=== PATIENT | female | born 1985 | race Caucasian/White ===

== ENCOUNTER 2019-02-23 06:21 | Emergency (ER) | payer SELFPAY ==
[~2019-02-23] VITALS: Ht 165 cm; Wt 82.0 kg
[~2019-02-23 06:21] MED LIST: AMOX500C2 PO; HYDR-3583 PO; HYDR118S10 PO; PENI500T PO; SERT25TA; [UNRECOGNIZED DRUG - CODE] PR; [UNRECOGNIZED DRUG - OTHER] PO
[2019-02-23] MEDS ORDERED: CYCL10TA9 PO (06:43)
[2019-02-23] MEDS ORDERED: IBUP-1780 PO (06:43)
--- NOTE | 2019-02-23 06:44 | ED Back Pain ---
General Chief Complaint: Back Problems Stated Complaint: LWR BACK PAIN Nursing Triage Note: PT AMBULATE TO ROOM FS06 WITH C/O LOWER BACK PAIN STARTING LAST NIGHT. PT STATES SHE WAS JUST LAYING IN BED AND IT STARTED AND SHE MAY HAVE PULLED A MUSCLE. PT REPORTS NO HX OF BACK PAIN. PT STATES SHE TOOK TYLENOL LAST NIGHT AND THIS MORNING WITH NO RELIEF. Nursing Sepsis Screen: No Definite Risk Source of Information: Patient Exam Limitations: No Limitations History of Present Illness Date Seen by Provider: Feb 23, 2019 Time Seen by Provider: 06:40 Initial Comments Injury to low back last night while "fooling around" with her significant other. Pain is described as a spasm and sharp. Denies any radiation of pain to lower extremities, weakness or loss of bowel or bladder control. Pain worse with movement. Denies history of recurrent or chronic back problems. Allergies and Home Medications Allergies Coded Allergies: CHRISANo Known Allergies (Unverified Allergy, Unknown, 10/09/05) Home Medications Amoxicillin 500 Mg Capsule, 1,000 MG PO BID Prescribed by: ARMAND FELIPE on 05/05/15 0953 Cyclobenzaprine HCl 10 Mg Tablet, 10 MG PO HS Prescribed by: LORE PERKINS on 02/23/19 0643 Ibuprofen 800 Mg Tablet, 800 MG PO Q8H PRN for PAIN-MILD Prescribed by: LORE PERKINS on 02/23/19 0643 Patient Home Medication List Home Medication List Reviewed: Yes Review of Systems Constitutional: no symptoms reported, see HPI Respiratory: no symptoms reported Cardiovascular: no symptoms reported Gastrointestinal: No abdominal pain, No constipation, No diarrhea, No heartburn, No nausea, No vomiting Genitourinary: no symptoms reported; No dysuria, No frequency Musculoskeletal: see HPI, back pain; No joint pain, No joint swelling; muscle pain; No muscle stiffness; muscle cramps; No muscle twitching, No muscle weakness, No neck pain Psychiatric/Neurological: Denies Numbness, Denies Paresthesia, Denies Pre- Existing Deficit, Denies Tremors, Denies Weakness Past Ginylhy-Sesvms-Qttgya Hx Past Med/Social Hx: Reviewed Nursing Past Med/Soc Hx Patient Social History Alcohol Use: Denies Use Recreational Drug Use: Yes (SMOKES 1/2 PPD) Smoking Status: Current Everyday Smoker Type Used: Cigars Recent Foreign Travel: No Contact w/Someone Who Travel: No Recent Infectious Disease Expo: No Recent Hopitalizations: Yes Physical Abuse: No Sexual Abuse: No Mistreated: No Fear: No Past Medical History Surgeries: Yes ( x2, 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 oz. 81.990644rv; 30.00 BMI Method:Stated General Appearance: No Apparent Distress, WD/WN Gastrointestinal: Non Tender, Soft; No Distended, No Guarding Back: Normal Inspection, No CVA Tenderness, No Vertebral Tenderness, Decreased Range of Motion, Muscle Spasm (lower lumbar paraspinal- b/l and upper left gluteus ms.); No Vertebral Tenderness Extremity: Normal Range of Motion, Non Tender Neurologic/Psychiatric: Alert, Oriented x3, No Motor/Sensory Deficits Progress/Results/Core Measures Results/Orders Vital Signs/I&O 02/23/19 06:30 Temp 36.5 Pulse 93 Resp 16 B/P (MAP) 129/84 (99) Pulse Ox 98 O2 Delivery Room Air Blood Pressure Mean: 99 Departure Impression Primary Impression: Back strain Qualified Codes: S39.012A - Strain of muscle, fascia and tendon of lower back, initial encounter Disposition: HOME, SELF-CARE Condition: Stable Departure-Patient Inst. Decision time for Depature: 06:43 Referrals: NO,LOCAL PHYSICIAN (PCP/Family) Primary Care Physician Patient Instructions: Lumbar Muscle Strain (DC) Scripts Ibuprofen (Ibuprofen) 800 Mg Tablet 800 MG PO Q8H PRN for PAIN-MILD, #30 TAB Prov: LORE PERKINS DO 02/23/19 Cyclobenzaprine HCl (Cyclobenzaprine HCl) 10 Mg Tablet 10 MG PO HS for Spasms, #14 TAB Prov: LORE PERKINS DO 02/23/19 LORE PERKINS DO Feb 23, 2019 06:44
[2019-02-23 06:55] VITALS: BP 129/78
== END 2019-02-23 06:53 | disposition home or self-care (01) ==
LOC: EDUNIT# 06:21 → ER FS 06:23
DX: S39.012A Strain of muscle, fascia and tendon of lower back, initial encounter (principal); F17.290 Nicotine dependence, other tobacco product, uncomplicated; X58.XXXA Exposure to other specified factors, initial encounter
CPT/HCPCS: 99281

== ENCOUNTER 2019-02-23 11:21 | Emergency (ER) | payer SELFPAY ==
[~2019-02-23] VITALS: Ht 165.1 cm; Wt 81.8 kg
[~2019-02-23 11:21] MED LIST changes: +CYCL10TA9 PO; +IBUP-1780 PO
--- NOTE | 2019-02-23 12:27 | ED Back Pain ---
General Chief Complaint: Back Problems Stated Complaint: BACK PAIN Source of Information: Patient Exam Limitations: No Limitations History of Present Illness Date Seen by Provider: Feb 23, 2019 Time Seen by Provider: 12:24 Initial Comments to ER with midline low back pain that began this morning while "fooling around" with her , she twisted wrong and now has pain in the midline low back that does not radiate. No loss of bowel or bladder control. She was seen at [place] emergency room this morning given a prescription for ibuprofen and cyclobenzaprine but couldn't afford [facility] didn't fill them, she comes here with persistent pain. Location: Lumbar Spine, Paraspinous Muscles Timing/Duration: 4-6 Hours Severity: Moderate Pain/Injury Location: Back Associated Symptoms: denies symptoms Allergies and Home Medications Allergies Coded Allergies: CHRISANo Known Allergies (Unverified Allergy, Unknown, 10/09/05) Home Medications Amoxicillin 500 Mg Capsule, 1,000 MG PO BID Prescribed by: ARMAND FELIPE on 05/05/15 0953 Cyclobenzaprine HCl 10 Mg Tablet, 10 MG PO HS Prescribed by: LORE PERKINS on 02/23/19 0643 Ibuprofen 800 Mg Tablet, 800 MG PO Q8H PRN for PAIN-MILD Prescribed by: LORE PERKINS on 02/23/19 0643 Patient Home Medication List Home Medication List Reviewed: Yes Review of Systems Constitutional: see HPI EENTM: see HPI Respiratory: no symptoms reported Cardiovascular: no symptoms reported Genitourinary: no symptoms reported Musculoskeletal: see HPI, back pain Skin: no symptoms reported Past Xjzcmdz-Jxgfaf-Tdxjmr Hx Patient Social History Type Used: Cigars Recent Foreign Travel: No Contact w/Someone Who Travel: No Recent Hopitalizations: Yes Past Medical History Surgeries: Yes ( x2, 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 oz. 81.337579hh; 30.00 BMI Method:Stated General Appearance: No Apparent Distress, WD/WN Cardiovascular: Regular Rate, Rhythm, Normal Peripheral Pulses Respiratory: No Accessory Muscle Use, No Respiratory Distress Gastrointestinal: Normal Bowel Sounds, Non Tender, Soft Back: Normal Inspection Extremity: Normal Capillary Refill, Normal Inspection Neurologic/Psychiatric: Alert, Oriented x3 Skin: Normal Color, Warm/Dry Progress/Results/Core Measures Results/Orders My Orders Orders - SANGEETA KENT APRN Ketorolac Injection (Toradol Injection) (02/23/19 12:30) Orphenadrine Injection (Norflex Injectio (02/23/19 12:30) Departure Impression Primary Impression: Lumbar sprain Disposition: 01 HOME, SELF-CARE Condition: Stable Departure-Patient Inst. Decision time for Depature: 12:26 Referrals: NO,LOCAL PHYSICIAN (PCP/Family) Primary Care Physician Patient Instructions: Low Back Pain (DC) SANGEETA KENT APRN Feb 23, 2019 12:26
[2019-02-23] MEDS ORDERED: ORPHENADRINE 60 MG/2 ML (NORFLEX) AMP IM ONE (12:30)
[2019-02-23] MEDS ORDERED: KETOROLAC 30 MG/ML VIAL IM ONE (12:30)
[2019-02-23] MEDS ORDERED: ONDANSETRON 4 MG (ZOFRAN) ORAL DISSOLVE TAB PO ONE (12:45)
[2019-02-23 12:52] VITALS: BP 110/73
== END 2019-02-23 12:52 | disposition home or self-care (01) ==
LOC: ER 11:21
DX: S33.5XXA Sprain of ligaments of lumbar spine, initial encounter (principal); X50.1XXA Overexertion from prolonged static or awkward postures, initial encounter
CPT/HCPCS: 99284

== ENCOUNTER 2019-07-26 15:48 | Emergency (ER) | payer SELFPAY ==
[~2019-07-26] VITALS: Ht 167 cm; Wt 96.5 kg
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
[2019-07-26 15:55] VITALS: BP 128/76
[2019-07-26] MEDS ORDERED: CEPH-507 PO (16:41)
--- NOTE | 2019-07-26 16:50 | Diagnostic Imaging Report ---
HISTORY: Right arm pain. COMPARISON: None. TECHNIQUE: Grayscale, color Doppler and spectral Doppler ultrasound was performed of the venous structures in the right upper extremity. FINDINGS: The right jugular, subclavian, axillary, and brachial veins appear patent without thrombus seen. The superficial basilic vein appears patent. The radial and ulnar veins are patent. The proximal superficial cephalic vein is patent. There is occlusive thrombus in the mid and distal superficial cephalic vein. IMPRESSION: 1. Occlusive thrombus in the mid to distal superficial right cephalic vein, consistent with thrombophlebitis. No deep venous thrombosis is seen. Findings reported to ELAINE JOHNSON APRN by the java programming professor, following the examination. Dictated by: Dictated on workstation # [id number]
== END 2019-07-26 16:40 | disposition home or self-care (01) ==
LOC: EDUNIT# 15:48 → ER 15:50
DX: S40.021A Contusion of right upper arm, initial encounter (principal); I80.8 Phlebitis and thrombophlebitis of other sites; Z77.22 Contact with and (suspected) exposure to environmental tobacco smoke (acute) (chronic); V47.6XXA Car passenger injured in collision with fixed or stationary object in traffic accident, initial encounter

== ENCOUNTER 2019-09-24 18:37 | Emergency (ER) | payer SELFPAY ==
[~2019-09-24] VITALS: Ht 165.1 cm; Wt 92.9 kg
[~2019-09-24 18:37] MED LIST changes: +CEPH-507 PO
[2019-09-24 18:59] LABS: BILIRUBIN,URINE NEGATIVE (NEGATIVE); COLOR,URINE YELLOW; GLUCOSE, URINE (UA) NEGATIVE (NEGATIVE); KETONES,URINE NEGATIVE (NEGATIVE); LEUKOCYTE ESTERASE ,URINE NEGATIVE (NEGATIVE); NITRITE,URINE NEGATIVE (NEGATIVE); PROTEIN,URINE NEGATIVE (NEGATIVE)
[2019-09-24 19:04] LABS: CLARITY,URINE CLOUDY
--- NOTE | 2019-09-24 19:06 | NUR ---
Report given to [place]
[2019-09-24 19:07] LABS: BACTERIA,URINE MODERATE /HPF; RBC,URINE 0-2 /HPF; SQUAMOUS EPITHELIAL CELL,UR 25-50 /HPF
[2019-09-24] MEDS ORDERED: CYCL10TA9 PO (19:52)
[2019-09-24] MEDS ORDERED: PRD20T PO (19:52)
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
[2019-09-24 20:05] VITALS: BP 135/80
== END 2019-09-24 20:07 | disposition home or self-care (01) ==
LOC: EDUNIT# 18:37 → ER 18:39
DX: M54.5 Low back pain (principal); R30.0 Dysuria; F17.290 Nicotine dependence, other tobacco product, uncomplicated; Z79.52 Long term (current) use of systemic steroids; Y04.8XXA Assault by other bodily force, initial encounter
CPT/HCPCS: 81000; 84703; 87088; 99283

== ENCOUNTER 2020-01-25 16:28 | Emergency (ER) | payer SELFPAY ==
[~2020-01-25] VITALS: Ht 167.7 cm; Wt 90.9 kg
[~2020-01-25 16:28] MED LIST changes: +PRD20T PO
[2020-01-25 18:16] VITALS: BP 133/85
[2020-01-25] MEDS ORDERED: AMOX500C2 PO (18:41)
--- NOTE | 2020-01-25 18:41 | ED EENT ---
History of Present Illness General Chief Complaint: Ear Problems Stated Complaint: EAR ACHE Nursing Triage Note: Pt ambulates to triage with c/o R side ear ache. Pt reports she has been experiencing discomfort to R ear since 01/22/20 with increase in severity at night. Pt reports hx x3 tubes placed to R ear. Pt denies drainage, hearing loss, fever, or chills. A&OX4. History of Present Illness Date Seen by Provider: Jan 25, 2020 Time Seen by Provider: 18:30 Initial Comments 34-year-old female presents for right year pain. She's had tubes in her ears in the past as a child. She's had no recent ear infections. She has not been seen by her primary care provider. She has not taken any Tylenol or ibuprofen for the pain. Timing/Duration: abrupt Severity: moderate Location: ear (R) Prearrival Treatment: no prearrival treatment Associated Symptoms: denies symptoms Allergies and Home Medications Allergies Coded Allergies: NKANo Known Allergies (Unverified Allergy, Unknown, 10/09/05) Home Medications Amoxicillin 500 Mg Capsule, 500 MG PO TID Prescribed by: WENCESLAO VELASCO on 01/25/20 1841 Cephalexin 500 Mg Capsule, 500 MG PO TID Prescribed by: SANGEETA KENT on 07/26/19 164 Cyclobenzaprine HCl 10 Mg Tablet, 10 MG PO Q8H PRN for SPASMS Prescribed by: ARMAND FELIPE on 09/24/191951 Prednisone 20 Mg Tab, 40 MG PO DAILY Prescribed by: ARMAND FELIPE on 09/24/191951 Patient Home Medication List Home Medication List Reviewed: Yes Review of Systems Review of Systems Constitutional: no symptoms reported, see HPI Ears: See HPI, Pain; Denies Bloody Discharge, Denies Clear Discharge, Denies Purulent Discharge, Denies Serosanguinous Discharge All Other Systems Reviewed Negative Unless Noted: Yes Past Pxfbtmi-Dmcyta-Ehyqnm Hx Past Med/Social Hx: Reviewed Nursing Past Med/Soc Hx Patient Social History Alcohol Use: Denies Use Recreational Drug Use: No Smoking Status: Current Everyday Smoker Type Used: Cigars 2nd Hand Smoke Exposure: Yes Recent Foreign Travel: No Contact w/Someone Who Travel: No Recent Infectious Disease Expo: No Recent Hopitalizations: Yes Past Medical History Surgeries: Yes ( x2, 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 oz. 81.699732ke; 32.00 BMI Method:Stated General Appearance: WD/WN, no apparent distress Ears: right ear TM red, right ear TM bulging; left ear TM normal; bilateral ear auricle normal, bilateral ear canal normal Mouth/Throat: normal mouth inspection, pharynx normal Neck: full range of motion, supple, normal inspection, lymphadenopathy (R) Cardiovascular: normal peripheral pulses, regular rate, rhythm Respiratory: chest non-tender, lungs clear, normal breath sounds Gastrointestinal: normal bowel sounds, non tender, soft Neurologic/Psychiatric: no motor/sensory deficits, alert, normal mood/affect, oriented x 3 Progress/Results/Core Measures Results/Orders Vital Signs/I&O 01/25/20 18:16 Temp 37.0 Pulse 95 Resp 18 B/P (MAP) 133/85 (101) Pulse Ox 100 O2 Delivery Room Air Blood Pressure Mean: 101 Departure Impression Primary Impression: Otitis media Qualified Codes: H66.004 - Acute suppurative otitis media without spontaneous rupture of ear drum, recurrent, right ear Disposition: HOME, SELF-CARE Condition: Against Medical Advice Departure-Patient Inst. Decision time for Depature: 18:35 Referrals: NO,LOCAL PHYSICIAN (PCP) Primary Care Physician [facility] [place] Instructions: Serous Otitis Media (DC) Add. Discharge Instructions: Alternate between Tylenol 650 mg and ibuprofen 600 mg every 4 hours for pain or fever. Next Take antibiotic as prescribed. Follow-up with your primary care provider at [facility] if symptoms are not improving or worsen. Return to emergency department for new, urgent health care needs. All discharge instructions reviewed with patient and/or family. Voiced understanding. Scripts Amoxicillin (Amoxicillin) 500 Mg Capsule 500 MG PO TID, #21 CAP 0 Refills Prov: WENCESLAO VELASCO 01/25/20 WENCESLAO VELASCO Jan 25, 2020 18:41
== END 2020-01-25 18:44 | disposition home or self-care (01) ==
LOC: EDUNIT# 16:28 → ER 16:29
DX: H66.91 Otitis media, unspecified, right ear (principal); F17.290 Nicotine dependence, other tobacco product, uncomplicated; Z79.52 Long term (current) use of systemic steroids
CPT/HCPCS: 99282

== ENCOUNTER 2020-09-26 17:32 | Emergency (ER) | payer SELFPAY ==
[~2020-09-26] VITALS: Ht 157.5 cm; Wt 91.4 kg
[2020-09-26 17:35] VITALS: BP 107/78
[2020-09-26] MEDS ORDERED: IBUP-1780 PO (17:51)
[2020-09-26] MEDS ORDERED: CYCL10TA9 PO (17:51)
--- NOTE | 2020-09-26 17:52 | ED Upper Extremity ---
General Chief Complaint: Upper Extremity Stated Complaint: BACK & RT ELBOW/SHOULDER INJ Nursing Triage Note: Patient reports she fell two days ago and has pain in her right elbow, right shoulder, and lower back. Nursing Sepsis Screen: No Definite Risk Source: patient History of Present Illness Date Seen by Provider: September 26, 2020 Time Seen by Provider: 17:48 Initial Comments 35-year-old female presents with right upper back pain after fall 3 days ago. States she is having some stiffness and some discomfort with movement. Denies any numbness, tingling or paresthesia. Denies any head or neck injury or spinal pain. Denies any weakness or loss of motion. Has taken Motrin for pain. Not [place] a primary care doctor. Allergies and Home Medications Allergies Coded Allergies: CHRISANo Known Allergies (Unverified Allergy, Unknown, 10/09/05) Home Medications Amoxicillin 500 Mg Capsule, 500 MG PO TID Prescribed by: WENCESLAO VELASCO on 01/25/20 1841 Cephalexin 500 Mg Capsule, 500 MG PO TID Prescribed by: SANGEETA KENT on 07/26/19 164 Cyclobenzaprine HCl 10 Mg Tablet, 10 MG PO Q8H PRN for SPASMS Prescribed by: ARMAND FELIPE on 09/24/191951 Cyclobenzaprine HCl 10 Mg Tablet, 10 MG PO Q8H PRN for SPASMS Prescribed by: LORE PERKINS on 09/26/201750 Ibuprofen 800 Mg Tablet, 800 MG PO Q8H PRN for PAIN Prescribed by: LORE JJSTLORENE on 09/26/201750 Prednisone 20 Mg Tab, 40 MG PO DAILY Prescribed by: ARMAND FELIPE on 09/24/191951 Patient Home Medication List Home Medication List Reviewed: Yes Review of Systems Constitutional: No fever, No malaise, No weakness EENTM: no symptoms reported Respiratory: No cough, No short of breath Cardiovascular: No chest pain, No edema, No palpitations Gastrointestinal: No abdominal pain, No nausea, No vomiting Musculoskeletal: see HPI, back pain; No joint pain, No joint swelling; muscle pain, muscle stiffness; No muscle cramps, No muscle weakness, No neck pain Skin: No change in color, No lesions, No lumps Psychiatric/Neurological: Denies Headache, Denies Numbness, Denies Paresthesia, Denies Weakness Past Rirrkfm-Enlqmj-Dpngxn Hx Past Med/Social Hx: Reviewed Nursing Past Med/Soc Hx Patient Social History Alcohol Use: Denies Use Drug of Choice: methamphetamines-clean for 1 month Smoking Status: Current Everyday Smoker Type Used: Cigars 2nd Hand Smoke Exposure: Yes Recent Infectious Disease Expo: No Recent Hopitalizations: Yes Past Medical History Surgeries: Yes ( x2, begnin tumor removed on ovary) Section, Ear Surgery Respiratory: Yes (tobaccoism) Cardiac: No Neurological: No Reproductive Disorders: Yes Genitourinary: No Gastrointestinal: No Musculoskeletal: No Endocrine: No Cancer: No Psychosocial: No Integumentary: No Blood Disorders: No Family Medical History No Pertinent Family Hx Physical Exam Vital Signs Vital Signs - First Documented 09/26/20 17:35 Temp 36.6 Pulse 106 Resp 18 B/P (MAP) 107/78 (88) Pulse Ox 96 O2 Delivery Room Air Capillary Refill : Less Than 3 Seconds Height, Weight, BMI Height: 5'2" Weight: 180lbs. oz. 81.322155hr; 36.00 BMI Method:Stated General Appearance: WD/WN, no apparent distress (laughing and carrying on w her friend in exam room) Neck: non-tender, full range of motion, supple, normal inspection Back: normal inspection, no CVA tenderness, no vertebral tenderness; No decreased range of motion; muscle spasm (R upper trapez. ms.); No vertebral tenderness Shoulder: normal inspection, non-tender, no evidence of injury, normal ROM Elbow/Forearm: normal inspection, non-tender, no evidence of injury, normal ROM Wrist: Yes normal inspection, Yes non-tender, Yes no evidence of injury, Yes normal ROM Hand: normal inspection, non-tender, no evidence of injury, normal ROM Neurologic/Tendon: normal sensation, normal motor functions, normal tendon functions Neurologic/Psychiatric: alert, normal mood/affect, oriented x 3 Skin: normal color, warm/dry; No ecchymosis Progress/Results/Core Measures Results/Orders Vital Signs/I&O 09/26/20 17:35 Temp 36.6 Pulse 106 Resp 18 B/P (MAP) 107/78 (88) Pulse Ox 96 O2 Delivery Room Air Blood Pressure Mean: 88 Departure Impression Primary Impression: Upper back strain Qualified Codes: S29.012A - Strain of muscle and tendon of back wall of thorax, initial encounter Disposition: HOME, SELF-CARE Condition: Stable Departure-Patient Inst. Decision time for Depature: 17:51 Referrals: [facility]/NEERAJ GOODWIN,LOCAL PHYSICIAN (PCP) Primary Care Physician Patient Instructions: Back Muscle Strain (DC) Add. Discharge Instructions: Establish a PCP for follow up evaluation in 1 week if not improving. All discharge instructions reviewed with patient and/or family. Voiced understanding. Scripts Ibuprofen (Ibuprofen) 800 Mg Tablet 800 MG PO Q8H PRN for PAIN, #30 TAB 0 Refills Prov: LORE PERKINS DO 09/26/20 Cyclobenzaprine HCl (Cyclobenzaprine HCl) 10 Mg Tablet 10 MG PO Q8H PRN for SPASMS, #15 TAB 0 Refills Prov: LORE PERKINS DO 09/26/20 LORE PERKINS DO September 26, 2020 17:52
== END 2020-09-26 17:59 | disposition home or self-care (01) ==
LOC: EDUNIT# 17:32 → ER FS 17:36
DX: S29.012A Strain of muscle and tendon of back wall of thorax, initial encounter (principal); F17.290 Nicotine dependence, other tobacco product, uncomplicated; W19.XXXA Unspecified fall, initial encounter
CPT/HCPCS: 99282

== ENCOUNTER 2020-10-08 12:43 | Emergency (ER) | payer SELFPAY ==
[~2020-10-08] VITALS: Ht 160 cm; Wt 92.4 kg
[2020-10-08 12:53] VITALS: BP 123/52
--- NOTE | 2020-10-08 12:59 | ED EENT ---
History of Present Illness General Chief Complaint: Dental Problems/Pain Stated Complaint: DENTAL PAIN Source: patient Exam Limitations: no limitations History of Present Illness Date Seen by Provider: October 08, 2020 Time Seen by Provider: 12:45 Initial Comments Patient is a 35-year-old female with history of advanced periodontal disease and widespread dental caries. She has gingival swelling, anterior dental pain which is described as dull and rated 10 out of 10. Symptoms have been ongoing and have worsened in the past several days. Is worse with eating and drinking. She has not taken any liao-hme-iolzoit medication. No recent antibiotics. No scheduled dental appointments. No dysphonia drooling trismus. No other symptoms or complaints. Patient reports that she is 2 weeks . Timing/Duration: gradual Severity: moderate Location: other Prearrival Treatment: other Modifying Factors: Improves With Other Associated Symptoms: other Allergies and Home Medications Allergies Coded Allergies: NKANo Known Allergies (Unverified Allergy, Unknown, 10/09/05) Home Medications Amoxicillin 500 Mg Capsule, 500 MG PO TID Prescribed by: WENCESLAO VELASCO on 01/25/20 184 Cephalexin 500 Mg Capsule, 500 MG PO TID Prescribed by: SANGEETA KENT on 07/26/19 164 Cyclobenzaprine HCl 10 Mg Tablet, 10 MG PO Q8H PRN for SPASMS Prescribed by: ARMAND FELIPE on 09/24/191951 Cyclobenzaprine HCl 10 Mg Tablet, 10 MG PO Q8H PRN for SPASMS Prescribed by: LORE PERKINS on 09/26/20 175 Ibuprofen 800 Mg Tablet, 800 MG PO Q8H PRN for PAIN Prescribed by: LORE PERKINS on 09/26/20 175 Prednisone 20 Mg Tab, 40 MG PO DAILY Prescribed by: ARMAND FELIPE on 09/24/191951 Patient Home Medication List Home Medication List Reviewed: Yes Review of Systems Review of Systems Constitutional: see HPI Eyes: See HPI Ears: See HPI Nose: see HPI Mouth: see HPI Throat: see HPI Respiratory: see HPI Cardiovascular: see HPI Gastrointestinal: see HPI Musculoskeletal: see HPI Past Eysllxm-Ofmccy-Njuyvr Hx Past Med/Social Hx: Reviewed Nursing Past Med/Soc Hx Patient Social History Drug of Choice: methamphetamines-clean for 1 month Type Used: Cigars 2nd Hand Smoke Exposure: Yes Recent Hopitalizations: Yes Past Medical History Surgeries: Yes ( x2, begnin tumor removed on ovary) Section, Ear Surgery Respiratory: Yes (tobaccoism) Cardiac: No Neurological: No Reproductive Disorders: Yes Genitourinary: No Gastrointestinal: No Musculoskeletal: No Endocrine: No Cancer: No Psychosocial: No Integumentary: No Blood Disorders: No Family Medical History No Pertinent Family Hx Visual Acuity : Vision Acuity Degree: Advanced periodontal disease, widespread dental caries Physical Exam Vital Signs Vital Signs - First Documented 10/08/20 12:53 Temp 36.6 Pulse 96 Resp 16 B/P (MAP) 123/52 (75) Pulse Ox 98 O2 Delivery Room Air Height, Weight, BMI Height: 5'2" Weight: 180lbs. oz. 81.262995ou; 36.00 BMI Method:Stated General Appearance: no apparent distress Eyes: bilateral eye normal inspection, bilateral eye PERRL, bilateral eye EOMI Ears: bilateral ear auricle normal, bilateral ear canal normal Nose: normal inspection Mouth/Throat: other Neck: supple, normal inspection Cardiovascular: normal peripheral pulses Respiratory: lungs clear Neurologic/Psychiatric: alert, oriented x 3 Progress/Results/Core Measures Results/Orders My Orders Orders - SILVANO VARGAS DO Ibuprofen Tablet (Motrin Tablet) (10/08/20 13:00) Vital Signs/I&O 10/08/20 12:53 Temp 36.6 Pulse 96 Resp 16 B/P (MAP) 123/52 (75) Pulse Ox 98 O2 Delivery Room Air Departure Impression Primary Impression: Dental caries Additional Impressions: Chronic pain Periodontal disease Disposition: HOME, SELF-CARE Condition: Stable Admissions Time/Decision to Admit Time: 13:04 Departure-Patient Inst. Decision time for Depature: 13:04 Referrals: [facility] (PCP/Family) Primary Care Physician Patient Instructions: Dental Pain, Tooth Decay, Adult (DC) Add. Discharge Instructions: Please take Tylenol and tramadol for pain and complete full course of medications and follow-up with dentist of choice GAYE All discharge instructions reviewed with patient and/or family. Voiced understanding. Scripts Tramadol HCl (Tramadol HCl) 50 Mg Tablet 50 MG PO Q4H PRN for PAIN-MODERATE (5-7), #5 TAB Prov: SILVANO VARGAS DO 10/08/20 Chlorhexidine Gluconate (Peridex) 473 Ml Mouthwash 473 ML MM TID, #120 ML Prov: SILVANO VARGAS DO 10/08/20 Clindamycin HCl (Clindamycin HCl) 300 Mg Capsule 300 MG PO TID, #30 CAP Prov: SILVANO VARGAS DO 10/08/20 SILVANO VARGAS DO October 08, 2020 12:59
[2020-10-08] MEDS ORDERED: ACETAMINOPHEN 325 MG TABLET PO ONE (13:00)
[2020-10-08] MEDS ORDERED: IBUPROFEN 600 MG (MOTRIN) TAB PO ONE (13:00)
[2020-10-08] MEDS ORDERED: CLIN300C12 PO (13:06)
[2020-10-08] MEDS ORDERED: TRM50T PO (13:06)
[2020-10-08] MEDS ORDERED: CHLO473M4 MM (13:06)
== END 2020-10-08 13:11 | disposition home or self-care (01) ==
LOC: EDUNIT# 12:43 → ER FS 12:44
DX: O99.611 Diseases of the digestive system complicating pregnancy, first trimester (principal); K02.9 Dental caries, unspecified; O99.351 Diseases of the nervous system complicating pregnancy, first trimester; G89.29 Other chronic pain; Z77.22 Contact with and (suspected) exposure to environmental tobacco smoke (acute) (chronic); Z3A.01 Less than 8 weeks gestation of pregnancy
CPT/HCPCS: 99283

== ENCOUNTER 2021-05-03 15:35 | Emergency (ER) | payer SELFPAY ==
[~2021-05-03] VITALS: Ht 157.5 cm; Wt 88.1 kg
[~2021-05-03 15:35] MED LIST changes: +CHLO473M4 MM; +CLIN-144 PO; +CYCL10TA25 PO; -CYCL10TA9 PO; +TRM50T PO
--- NOTE | 2021-05-03 16:12 | ED Abdominal Pain ---
General Chief Complaint: Abdominal/GI Problems Stated Complaint: TIGHNESS IN RT LOWER SIDE,ABD PAIN Nursing Triage Note: Patient reports sudden onset of generalized abdominal pain 48 hours ago that has now localized to her RLQ. She denies any other symptoms. She reports she has had her left ovary removed several years ago due to a mass, states she is unsure whether it was benign or not. Source of Information: Patient Exam Limitations: No Limitations History of Present Illness Date Seen by Provider: May 03, 2021 Time Seen by Provider: 15:37 Initial Comments 35-year-old female with no significant past medical history coming in due to right lower quadrant abdominal pain. Has been going on for 48 hours, is sharp, constant, mild in severity. Has not taken anything for this. Says it feels somewhat similar to her., But her LMP finished 3 days ago. Is currently denying any vaginal bleeding, vaginal discharge, dysuria, nausea, vomiting, diarrhea, fever, chills, weakness, numbness, rash, or any other concerns. Has had a C- section before and had an ovarian mass that was benign removed in the past. She is otherwise denying any other acute complaints. Allergies and Home Medications Allergies Coded Allergies: NKANo Known Allergies (Unverified Allergy, Unknown, 10/09/05) Patient Home Medication List Home Medication List Reviewed: Yes Amoxicillin (Amoxicillin) 500 Mg Capsule, 500 MG PO TID Prescribed by: WENCESLAO VELASCO on 01/25/20 184 Cephalexin (Keflex) 500 Mg Capsule, 500 MG PO TID Prescribed by: SANGEETA KENT on 07/26/19 164 Chlorhexidine Gluconate (Peridex) 473 Ml Mouthwash, 473 ML MM TID Prescribed by: SILVANO VARGAS on 10/08/20 1306 Clindamycin HCl (Clindamycin HCl) 300 Mg Capsule, 300 MG PO TID Prescribed by: SILVANO VARGAS on 10/08/20 1306 Cyclobenzaprine HCl (Cyclobenzaprine HCl) 10 Mg Tablet, 10 MG PO Q8H PRN for SPASMS Prescribed by: ARMAND FELIPE on 09/24/191951 Cyclobenzaprine HCl (Cyclobenzaprine HCl) 10 Mg Tablet, 10 MG PO Q8H PRN for SPASMS Prescribed by: LORE PERKINS on 09/26/201750 Ibuprofen (Ibuprofen) 800 Mg Tablet, 800 MG PO Q8H PRN for PAIN Prescribed by: LORE PERKINS on 09/26/20 175 Prednisone (Prednisone) 20 Mg Tab, 40 MG PO DAILY Prescribed by: ARMAND FELIPE on 09/24/191951 Tramadol HCl (Tramadol HCl) 50 Mg Tablet, 50 MG PO Q4H PRN for PAIN-MODERATE (5- 7) Prescribed by: SILVANO VARGAS on 10/08/20 1306 Review of Systems Review of Systems Constitutional: No chills, No fever EENTM: No Blurred Vision Respiratory: Denies Cough, Denies Shortness of Air Cardiovascular: Denies Chest Pain Gastrointestinal: Abdominal Pain; Denies Diarrhea, Denies Nausea, Denies Vomiting Genitourinary: Denies Burning, Denies Discharge Musculoskeletal: no symptoms reported Skin: no symptoms reported Psychiatric/Neurological: No Symptoms Reported Endocrine: No Symptoms Reported Hematologic/Lymphatic: No Symptoms Reported All Other Systems Reviewed Negative Unless Noted: Yes Past Yzxicgw-Mxfgvj-Ummffg Hx Patient Social History Tobacco Use?: Yes Tobacco type used: Cigarettes Smoking Status: Current Everyday Smoker Substance use?: Yes Substance type: Amphetamines Alcohol Use?: No Pt feels they are or have been: No Immunizations Up To Date First/Initial COVID19 Vaccinat: 10/2020 COVID19 Vaccine [employer]: [employer] Seasonal Allergies Seasonal Allergies: No Past Medical History Surgeries: Yes ( x2, begnin tumor removed on ovary) Section, Ear Surgery Respiratory: Yes (tobaccoism) Cardiac: No Neurological: No Last Menstrual Period: Apr 26, 2021 Reproductive Disorders: Yes Genitourinary: No Gastrointestinal: No Musculoskeletal: No Endocrine: No Cancer: No Psychosocial: No Integumentary: No Blood Disorders: No Family Medical History No Pertinent Family Hx Physical Exam Vital Signs Vital Signs - First Documented 05/03/21 15:46 Temp 36.6 Pulse 86 Resp 16 B/P (MAP) 140/78 (98) Pulse Ox 100 O2 Delivery Room Air Capillary Refill : Less Than 3 Seconds Height/Weight/BMI Height: 5'2" Weight: 180lbs. oz. 81.634222yw; 35.00 BMI Method:Stated General Appearance: WD/WN, no apparent distress HEENT: PERRL/EOMI, normal ENT inspection, pharynx normal Neck: non-tender, full range of motion, supple, normal inspection Respiratory: chest non-tender, lungs clear, normal breath sounds, no respiratory distress, no accessory muscle use Cardiovascular: regular rate, rhythm, no edema, no murmur Gastrointestinal: normal bowel sounds, non tender, soft; No distended, No guarding, No rebound Extremities: normal range of motion, non-tender, normal inspection, no pedal edema, no calf tenderness, normal capillary refill Back: normal inspection, no CVA tenderness, no vertebral tenderness Neurologic/Psychiatric: no motor/sensory deficits, alert, normal mood/affect Skin: normal color, warm/dry Lymphatic: no adenopathy Progress/Results/Core Measures Results/Orders Lab Results Laboratory Tests Test 05/03/21 15:45 05/03/21 16:08 Range/Units Urine Color YELLOW Urine Clarity CLOUDY Urine pH 6.0 5-9 Urine Specific [place] >=1.030 1.016-1.022 Urine Protein NEGATIVE NEGATIVE Urine Glucose (UA) NEGATIVE NEGATIVE Urine Ketones NEGATIVE NEGATIVE Urine Nitrite POSITIVE H NEGATIVE Urine Bilirubin NEGATIVE NEGATIVE Urine Urobilinogen 0.2 < = 1.0 MG/DL Urine Leukocyte Esterase NEGATIVE NEGATIVE Urine RBC (Auto) 1+ H NEGATIVE Urine RBC 2-5 H /HPF Urine WBC 0-2 /HPF Urine Squamous Epithelial Cells 10-25 H /HPF Urine Crystals PRESENT H /LPF Urine Calcium Oxalate Crystals FEW H /LPF Urine Bacteria LARGE H /HPF Urine Casts NONE /LPF Urine Mucus MODERATE H /LPF Urine Culture Indicated YES White Blood Count 7.5 4.3-11.0 10^3/uL Red Blood Count 4.33 3.80-5.11 10^6/uL Hemoglobin 12.1 11.5-16.0 g/dL Hematocrit 37 35-52 % Mean Corpuscular Volume 86 80-99 fL Mean Corpuscular Hemoglobin 28 25-34 pg Mean Corpuscular Hemoglobin Concent 32 32-36 g/dL Red Cell Distribution Width 15.6 H 10.0-14.5 % Platelet Count 483 H 130-400 10^3/uL Mean Platelet Volume 8.8 L 9.0-12.2 fL Neutrophils (%) (Auto) 61 42-75 % Lymphocytes (%) (Auto) 30 12-44 % Monocytes (%) (Auto) 7 0-12 % Eosinophils (%) (Auto) 2 0-10 % Basophils (%) (Auto) 0 0-10 % Neutrophils # (Auto) 4.5 1.8-7.8 X 10^3 Lymphocytes # (Auto) 2.3 1.0-4.0 X 10^3 Monocytes # (Auto) 0.6 0.0-1.0 X 10^3 Eosinophils # (Auto) 0.1 0.0-0.3 10^3/uL Basophils # (Auto) 0.0 0.0-0.1 10^3/uL Sodium Level 139 135-145 MMOL/L Potassium Level 4.1 3.6-5.0 MMOL/L Chloride Level 105 98-107 MMOL/L Carbon Dioxide Level 23 21-32 MMOL/L Anion Gap 11 5-14 MMOL/L Blood Urea Nitrogen 13 7-18 MG/DL Creatinine 0.83 0.60-1.30 MG/DL Estimat Glomerular Filtration Rate 78 BUN/Creatinine Ratio 16 Glucose Level 89 70-105 MG/DL Calcium Level 8.8 8.5-10.1 MG/DL Corrected Calcium 8.6 8.5-10.1 MG/DL Total Bilirubin 0.2 0.1-1.0 MG/DL Aspartate Amino Transf (AST/SGOT) 13 5-34 U/L Alanine Aminotransferase (ALT/SGPT) 9 0-55 U/L Alkaline Phosphatase 71 40-136 U/L Total Protein 7.3 6.4-8.2 GM/DL Albumin 4.2 3.2-4.5 GM/DL My Orders Orders - YENI CURRY MD Cbc With Automated Diff (05/03/21 15:54) Comprehensive Metabolic Panel (05/03/21 15:54) Ua Culture If Indicated (05/03/21 15:54) Ed Iv/Invasive Line Start (05/03/21 15:54) Urine Bedside (05/03/21 15:54) Ct Abd/Pelv W (Appendicitis) (05/03/21 15:54) Iohexol Injection (Omnipaque 350 Mg/Ml 1 (05/03/21 16:30) Received Contrast (Hold Metformin- Contr (05/03/21 16:30) Sodium Chloride Flush (Catheter Flush Sy (05/03/21 16:30) Ns (Ivpb) (Sodium Chloride 0.9% Ivpb Bag (05/03/21 16:30) Urine Culture (05/03/21 15:45) Ketorolac Injection (Toradol Injection) (05/03/21 17:00) Ceftriaxone (Rocephin) (05/03/21 17:00) Ceftriaxone 1 Gm Pre-Mix (Rocephin 1 Gm (05/03/21 16:54) Medications Given in ED Current Medications Medications Dose Ordered Sig/Jackeline Route Start Time Stop Time Status Last Admin Dose Admin Ceftriaxone Sodium 1000 mg/ Sodium Chloride 50 ml @ 100 mls/hr ONCE ONCE IV 05/03/21 17:00 05/03/21 17:29 DC 05/03/21 17:08 100 MLS/HR Iohexol 100 ml ONCE ONCE IV 05/03/21 16:30 05/03/21 16:31 DC 05/03/21 16:31 100 ML Ketorolac Tromethamine 15 mg ONCE ONCE IVP 05/03/21 17:00 05/03/21 17:01 DC 05/03/21 17:03 15 MG Sodium Chloride 10 ml NEEDED PRN IV 05/03/21 16:30 05/03/21 16:31 10 ML Sodium Chloride 100 ml ONCE ONCE IV 05/03/21 16:30 05/03/21 16:31 DC 05/03/21 16:31 100 ML Vital Signs/I&O 05/03/21 15:46 Temp 36.6 Pulse 86 Resp 16 B/P (MAP) 140/78 (98) Pulse Ox 100 O2 Delivery Room Air Blood Pressure Mean: 98 Progress Progress Note : Progress Note 35-year-old female with above history coming in due to right lower quadrant abdominal pain. ABCs were intact vitals were stable on presentation. Physical exam with minimal tenderness in the right lower quadrant and no pelvic tenderness. Basic labs obtained and are reassuring including normal white blood cell count, normal LFTs, normal kidney function. test is negative. U rinalysis concerning for infection including positive nitrites and large amount of bacteria. CT abdomen and pelvis negative for any acute abnormalities. The patient was given a dose of IV Toradol as well as ceftriaxone for her cystitis. I believe she is stable for discharge with outpatient management and follow-up. She was sent home with strict return precautions peer Departure Impression Primary Impression: Cystitis Disposition: HOME, SELF-CARE Condition: Stable Departure-Patient Inst. Decision time for Depature: 17:43 Referrals: [facility] (PCP/Family) Primary Care Physician Patient Instructions: Acute Cystitis (DC) Add. Discharge Instructions: You were seen in the emergency department for lower abdominal pain. Your CT is reassuring with nothing acutely wrong. You do have a significant kidney infection however. You should take antibiotics twice daily for the next week. Take 600 mg of ibuprofen every 6 hours for pain. If this persists within the next week then please call your primary care doctor. Scripts Cefdinir (Cefdinir) 300 Mg Capsule 300 MG PO BID for 7 Days, #14 CAP Prov: YENI CURRY MD 05/03/21 Work/School Note: Work Release Form Date Seen in the Emergency Department: May 03, 2021 Return to Work: May 07, 2021 Restrictions: Return-No Fever (24hrs) YENI CURRY MD May 03, 2021 16:12
[2021-05-03 16:16] LABS: BILIRUBIN,URINE NEGATIVE (NEGATIVE); CLARITY,URINE CLOUDY; COLOR,URINE YELLOW; GLUCOSE, URINE (UA) NEGATIVE (NEGATIVE); KETONES,URINE NEGATIVE (NEGATIVE); LEUKOCYTE ESTERASE ,URINE NEGATIVE (NEGATIVE); NITRITE,URINE POSITIVE (NEGATIVE); PROTEIN,URINE NEGATIVE (NEGATIVE)
[2021-05-03 16:22] LABS: BACTERIA,URINE LARGE /HPF; WBC,URINE 0-2 /HPF
[2021-05-03 16:23] LABS: CALCIUM OXALATE CRYSTALS,UR FEW /LPF
[2021-05-03 16:24] LABS: WHITE BLOOD COUNT 7.5 10^3/uL (4.3-11.0)
[2021-05-03 16:25] LABS: BASOPHILS % (AUTO) 0 % (0-10); EOSINOPHILS % (AUTO) 2 % (0-10); HEMATOCRIT 37 % (35-52); HEMOGLOBIN 12.1 g/dL (11.5-16.0); LYMPHOCYTES % (AUTO) 30 % (12-44); MEAN CORPUSCULAR HEMOGLOBIN 28 pg (25-34); MEAN CORPUSCULAR HGB CONC 32 g/dL (32-36); MEAN CORPUSCULAR VOLUME 86 fL (80-99); MEAN PLATELET VOLUME 8.8 fL (9.0-12.2); MONOCYTES % (AUTO) 7 % (0-12); NEUTROPHILS % (AUTO) 61 % (42-75); PLATELET COUNT 483 10^3/uL (130-400)
[2021-05-03 16:26] LABS: EOSINOPHILS # (AUTO) 0.1 10^3/uL (0.0-0.3); LYMPHOCYTES # (AUTO) 2.3 X 10^3 (1.0-4.0); MONOCYTES # (AUTO) 0.6 X 10^3 (0.0-1.0); NEUTROPHILS # (AUTO) 4.5 X 10^3 (1.8-7.8)
[2021-05-03] MEDS ORDERED: HOLD METFORMIN - RECEIVED CONTRAST 20 ML VIAL IV SCH (16:30)
[2021-05-03] MEDS ORDERED: IOHEXOL 350 MG/ML 100 ML (OMNIPAQUE 350) VIAL IV ONE (16:30)
[2021-05-03] MEDS ORDERED: CATHETER FLUSH 10 ML SYR IV PRN (16:30)
[2021-05-03] MEDS ORDERED: NS 100 ML (IVPB) BAG IV ONE (16:30)
[2021-05-03 16:38] LABS: BILIRUBIN,TOTAL 0.2 MG/DL (0.1-1.0); CALCIUM 8.8 MG/DL (8.5-10.1); CREATININE SERUM 0.83 MG/DL (0.60-1.30); POTASSIUM 4.1 MMOL/L (3.6-5.0)
[2021-05-03 16:39] LABS: ALBUMIN 4.2 GM/DL (3.2-4.5); TOTAL PROTEIN 7.3 GM/DL (6.4-8.2)
[2021-05-03] MEDS ORDERED: cefTRIAXone 1 GM PRE-MIX 50 ML IV ONE (16:54)
[2021-05-03] MEDS ORDERED: NS IV ONE (17:00)
[2021-05-03] MEDS ORDERED: CEFTRIAXONE IV ONE (17:00)
[2021-05-03] MEDS ORDERED: KETOROLAC 30 MG/ML VIAL IVP ONE (17:00)
[2021-05-03] MEDS ORDERED: CEFD300C3 PO (17:44)
[2021-05-03 17:46] VITALS: BP 133/79
--- NOTE | 2021-05-03 18:19 | Diagnostic Imaging Report ---
PROCEDURE: CT abdomen and pelvis with contrast, rule out appendicitis. TECHNIQUE: Multiple contiguous axial images were obtained through the abdomen and pelvis after the administration of intravenous contrast. All CT scans use one or more of the following dose optimizing techniques: automated exposure control, MA and/or KvP adjustment based on patient size and exam type or iterative reconstruction. INDICATION: Right lower quadrant pain of two days' duration, history of left oophorectomy for treatment of a mass. COMPARISON: I have no relevant comparison. FINDINGS: The air-containing appendix arises off the caudal pole of the cecum. It is distally directed inferiorly. It is noninflamed, nondilated, and nonacute. No appendicolith. There is likely follicular cyst in the right ovary. The left adnexa is normal. The uterus and urinary bladder are unremarkable. There is no diverticulitis. There is no small or large bowel obstruction. Gallbladder is partly contracted. No visualized stone. The bile ducts are nondilated. The liver appeared normal. Spleen, adrenals, and pancreas are unremarkable. The aorta is nonaneurysmal. There is no ileus or bowel obstruction. No mesenteric or retroperitoneal adenopathy. No perienteric or pericolonic edema. The lung bases and the bony structures were nonacute. IMPRESSION: 1. Normal appendix. No acute adnexal lesion. Unobstructed nonacute urinary tracts. 2. No acute-appearing abnormality. Dictated by: Dictated on workstation # [id number]
== END 2021-05-03 17:56 | disposition home or self-care (01) ==
LOC: EDUNIT# 15:35 → ER FS 15:36
DX: N30.90 Cystitis, unspecified without hematuria (principal); F17.210 Nicotine dependence, cigarettes, uncomplicated
CPT/HCPCS: 36415; 74177; 80053; 81000; 84703; 85025; 87088

== ENCOUNTER 2022-03-02 15:16 | Emergency (ER) | payer SELFPAY ==
[~2022-03-02 15:16] MED LIST changes: +CEFD300C3 PO
[2022-03-02 15:39] VITALS: BP 122/94
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
[2022-03-02] MEDS ORDERED: IBUPROFEN 800 MG (MOTRIN) TAB PO ONE (15:45)
[2022-03-02] MEDS ORDERED: CYCLOBENZAPRINE 10 MG (FLEXERIL) TAB PO ONE (15:45)
[2022-03-02] MEDS ORDERED: CYCL10TA25 PO (15:48)
[2022-03-02] MEDS ORDERED: IBUP-1780 PO (15:48)
== END 2022-03-02 15:49 | disposition home or self-care (01) ==
LOC: EDUNIT# 15:16 → ER FS 15:18
DX: S16.1XXA Strain of muscle, fascia and tendon at neck level, initial encounter (principal); F17.210 Nicotine dependence, cigarettes, uncomplicated; Z28.311 Partially vaccinated for COVID-19; X58.XXXA Exposure to other specified factors, initial encounter
CPT/HCPCS: 99283

== ENCOUNTER 2022-03-09 14:27 | Emergency (ER) | payer SELFPAY ==
[~2022-03-09] VITALS: Ht 157.4 cm; Wt 95.3 kg
--- NOTE | 2022-03-09 14:33 | ED GU-Female ---
General Chief Complaint: - Reproductive Stated Complaint: SUPRAPUBIC PAIN History of Present Illness Date Seen by Provider: Mar 09, 2022 Time Seen by Provider: 14:33 Initial Comments 36-year-old female with PMH of anxiety and depression/drug abuse/unknown intestinal cancer removal, is here with complaints of left-sided suprapubic pain and vaginal discharge which started last night. Patient thinks that she may have possibly lost her vibrator inside her vagina somewhere. Denies fever, diarrhea, nausea and vomiting, constipation, vaginal bleeding, hematuria, dysuria. Patient's last period was a week ago. Allergies and Home Medications Allergies Coded Allergies: NKANo Known Allergies (Unverified Allergy, Unknown, 10/09/05) Patient Home Medication List Home Medication List Reviewed: Yes Amoxicillin (Amoxicillin) 500 Mg Capsule, 500 MG PO TID Prescribed by: WENCESLAO VELASCO on 01/25/20 184 Cefdinir (Cefdinir) 300 Mg Capsule, 300 MG PO BID Prescribed by: YENI CURRY on 05/03/21 174 Cephalexin (Keflex) 500 Mg Capsule, 500 MG PO TID Prescribed by: SANGEETA KENT on 07/26/19 1641 Chlorhexidine Gluconate (Peridex) 473 Ml Mouthwash, 473 ML MM TID Prescribed by: SILVANO VARGAS on 10/08/20 1306 Clindamycin HCl (Clindamycin HCl) 300 Mg Capsule, 300 MG PO TID Prescribed by: SILVANO VARGAS on 10/08/20 1306 Cyclobenzaprine HCl (Cyclobenzaprine HCl) 10 Mg Tablet, 10 MG PO Q8H PRN for SPASMS Prescribed by: ARMAND FELIPE on 09/24/191951 Cyclobenzaprine HCl (Cyclobenzaprine HCl) 10 Mg Tablet, 10 MG PO Q8H PRN for SPASMS Prescribed by: LORE PERKINS on 09/26/201750 Cyclobenzaprine HCl (Cyclobenzaprine HCl) 10 Mg Tablet, 10 MG PO Q6H PRN for PAIN-MODERATE (5-7) Prescribed by: Sandra luong on 03/02/22 1548 Ibuprofen (Ibuprofen) 800 Mg Tablet, 800 MG PO Q8H PRN for PAIN Prescribed by: LORE JJSTINE on 09/26/201750 Ibuprofen (Ibuprofen) 800 Mg Tablet, 800 MG PO Q8H PRN for PAIN Prescribed by: Sandra luong on 03/02/22 1548 Prednisone (Prednisone) 20 Mg Tab, 40 MG PO DAILY Prescribed by: ARMAND FELIPE on 09/24/191951 Tramadol HCl (Tramadol HCl) 50 Mg Tablet, 50 MG PO Q4H PRN for PAIN-MODERATE (5- 7) Prescribed by: SILVANO VARGAS on 10/08/20 1306 Review of Systems Review of Systems Constitutional: no symptoms reported EENTM: no symptoms reported Respiratory: no symptoms reported Cardiovascular: no symptoms reported Gastrointestinal: see HPI Genitourinary: burning, dysuria Musculoskeletal: no symptoms reported Skin: no symptoms reported Psychiatric/Neurological: No Symptoms Reported Endocrine: No Symptoms Reported Hematologic/Lymphatic: No Symptoms Reported Past Kxymbfr-Jluxlu-Azsogw Hx Immunizations Up To Date First/Initial COVID19 Vaccinat: 10/2020 Second COVID19 Vaccination Tyson: 10/2020 Third COVID19 Vaccination Date: 10/2020 Seasonal Allergies Seasonal Allergies: No Past Medical History Surgeries: Yes ( x2, begnin 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 oz. 81.814034ic; 35.00 BMI Method:Stated General Appearance: WD/WN, no apparent distress HEENT: PERRL/EOMI Neck: full range of motion Cardiovascular: regular rate, rhythm Respiratory: lungs clear, normal breath sounds Gastrointestinal: normal bowel sounds, non tender, soft, no organomegaly, other (no suprapubic tenderness) Genital/Rectal: normal genital exam (except for thick white vaginal discharge seen. No foreign bodies and cervix is closed, no cervical trauma, no bleeding) Pelvic: normal external exam, normal adnexa Back: normal inspection, no CVA tenderness Extremities: normal range of motion Neurologic/Psychiatric: no motor/sensory deficits, alert, oriented x 3 Skin: normal color Lymphatic: no adenopathy Progress/Results/Core Measures Suspected Sepsis SIRS Temperature: Pulse: Respiratory Rate: Blood Pressure / Mean: Results/Orders Lab Results Laboratory Tests Test 03/09/22 14:35 Range/Units Urine Color YELLOW Urine Clarity CLEAR Urine pH 6.5 5-9 Urine Specific K[place]ron 1.025 H 1.016-1.022 Urine Protein NEGATIVE NEGATIVE Urine Glucose (UA) NEGATIVE NEGATIVE Urine Ketones NEGATIVE NEGATIVE Urine Nitrite NEGATIVE NEGATIVE Urine Bilirubin NEGATIVE NEGATIVE Urine Urobilinogen 0.2 < = 1.0 MG/DL Urine Leukocyte Esterase NEGATIVE NEGATIVE Urine RBC (Auto) 1+ H NEGATIVE Urine RBC 5-10 H /HPF Urine WBC NONE /HPF Urine Squamous Epithelial Cells 10-25 H /HPF Urine Crystals NONE /LPF Urine Bacteria MODERATE H /HPF Urine Casts NONE /LPF Urine Mucus LARGE H /LPF Urine Culture Indicated YES Urine Test NEGATIVE NEGATIVE Urine Opiates Screen NEGATIVE NEGATIVE Urine Oxycodone Screen NEGATIVE NEGATIVE Urine Methadone Screen NEGATIVE NEGATIVE Urine Propoxyphene Screen NEGATIVE NEGATIVE Urine Barbiturates Screen NEGATIVE NEGATIVE Ur Tricyclic Antidepressants Screen NEGATIVE NEGATIVE Urine Phencyclidine Screen NEGATIVE NEGATIVE Urine Amphetamines Screen POSITIVE H NEGATIVE Urine Methamphetamines Screen NEGATIVE NEGATIVE Urine Benzodiazepines Screen NEGATIVE NEGATIVE Urine Cocaine Screen NEGATIVE NEGATIVE Urine Cannabinoids Screen NEGATIVE NEGATIVE Micro Results Microbiology 03/09/22 Wet Prep - Final, Complete My Orders Orders - CHARLEEN BUNN MD Ua Culture If Indicated (03/09/22 14:29) Hcg,Qualitative Urine (03/09/22 14:34) Drug Screen Stat (Urine) (03/09/22 14:35) Urine Culture (03/09/22 14:35) Neis Marshall Dna Urine Test (03/09/22 14:58) Chlamydia Trachomatis Urine (03/09/22 14:58) Wet Prep (03/09/22 14:59) Ceftriaxone (Rocephin) (03/09/22 15:15) Azithromycin Tablet (Zithromax Tablet) (03/09/22 15:15) Metronidazole Tablet (Flagyl Tablet) (03/09/22 15:15) Vital Signs/I&O 03/09/22 14:33 Temp 36.4 Pulse 88 Resp 16 B/P (MAP) 136/99 (111) Pulse Ox 96 O2 Delivery Room Air Capillary Refill : Progress Note : Progress Note 1. STD SCREEN/ Amphetamine ABUSE: - UA/ UCG/ UDS: mucus positive, negative , amphetamine positive - GC CHLAMYDIA & WET prep ordered -Ceftriaxone 50 mg IM/azithromycin 1 g oral stat given in ED -Flagyl 500 mg twice daily for 7 days prescription -Drug cessation advised -Abstinence from sexual activity for 7 days advised -Follow-up with PCP within the next 5 to 7 days -The patient was seen in the ED, and treated appropriately to presentation at a specific point in time. Patient is informed that there is a possibility that disease and illness can evolve and change in acuity rapidly or slowly after patient is discharged from the ER. Precautionary advice given to the patient for immediate return to ER if symptoms worsen or do not resolve, and to seek emergency care sooner rather than later. Pt also advised on the importance of PCP follow up and compliance with management and follow up plan with PCP and/or specialist, as this is part of the management plan. Pt verbally expressed understanding. Departure Impression Primary Impression: Screening for STD (sexually transmitted disease) Additional Impression: Amphetamine abuse Disposition: HOME, SELF-CARE Condition: Stable Departure-Patient Inst. Referrals: CHANNING FARRIS APRN (PCP) Primary Care Physician [facility] (Family) Primary Care Physician Patient Instructions: Urinary Tract Infection, Adult (DC), Drug Abuse and Drug Addiction (DC) Add. Discharge Instructions: -Flagyl 500 mg twice daily for 7 days prescription -Drug cessation advised -Abstinence from sexual activity for 7 days advised -Follow-up with PCP within the next 5 to 7 days All discharge instructions reviewed with patient and/or family. Voiced understanding. Scripts Metronidazole (Metronidazole) 500 Mg Tablet 500 MG PO BID for 7 Days, #14 TAB Prov: CHARLEEN BUNN MD 03/09/22 CHARLEEN BUNN MD Mar 09, 2022 14:33
[2022-03-09 14:42] LABS: BILIRUBIN,URINE NEGATIVE (NEGATIVE); CLARITY,URINE CLEAR; COLOR,URINE YELLOW; GLUCOSE, URINE (UA) NEGATIVE (NEGATIVE); KETONES,URINE NEGATIVE (NEGATIVE); LEUKOCYTE ESTERASE ,URINE NEGATIVE (NEGATIVE); NITRITE,URINE NEGATIVE (NEGATIVE); PH,URINE 6.5 (5-9); PROTEIN,URINE NEGATIVE (NEGATIVE)
[2022-03-09 14:43] LABS: HCG,QUALITATIVE URINE NEGATIVE (NEGATIVE)
[2022-03-09 14:46] LABS: BACTERIA,URINE MODERATE /HPF
[2022-03-09 14:53] LABS: AMPHETAMINE SCREEN, URINE POSITIVE (NEGATIVE); BARBITURATE SCREEN URINE NEGATIVE (NEGATIVE); BENZODIAZEPINES SCREEN URINE NEGATIVE (NEGATIVE); CANNABINOID SCREEN, URINE NEGATIVE (NEGATIVE); COCAINE SCREEN URINE NEGATIVE (NEGATIVE); METHADONE STAT NEGATIVE (NEGATIVE); OPIATE SCREEN URINE NEGATIVE (NEGATIVE); OXYCODONE STAT NEGATIVE (NEGATIVE); PROPOXYPHENE STAT NEGATIVE (NEGATIVE); TRICYCLIC ANTIDEPRESSANTS SCRE NEGATIVE (NEGATIVE)
[2022-03-09] MEDS ORDERED: cefTRIAXone 250 MG/2.5 ML ML IM ONE (15:15)
[2022-03-09] MEDS ORDERED: metroNIDAZOLE 500 MG (FLAGYL) TAB PO ONE (15:15)
[2022-03-09] MEDS ORDERED: AZITHROMYCIN 250 MG TAB (ZITHROMAX) PO ONE (15:15)
[2022-03-09] MEDS ORDERED: METR-145 PO (15:36)
[2022-03-09 15:42] VITALS: BP 136/99
== END 2022-03-09 15:41 | disposition home or self-care (01) ==
LOC: EDUNIT# 14:27 → ER FS 14:28
DX: F15.10 Other stimulant abuse, uncomplicated (principal); Z11.3 Encounter for screening for infections with a predominantly sexual mode of transmission
CPT/HCPCS: 36415; 80306; 81000; 84703; 87088; 87210; 87491; 87591; 99284

== ENCOUNTER 2022-03-15 13:32 | Emergency (ER) | payer SELFPAY ==
[~2022-03-15 13:32] MED LIST changes: +METR-145 PO
--- NOTE | 2022-03-15 13:44 | ED General ---
General Stated Complaint: MAEGAN FEET BLISTER; NASAL DRAINAGE Source of Information: Patient Exam Limitations: No Limitations History of Present Illness Date Seen by Provider: Mar 15, 2022 Time Seen by Provider: 13:30 Initial Comments 36-year-old female presents the emergency department today for sores on her feet and runny nose. The sores on her feet have been present for the last 3 to 4 days. Runny nose has been present for about a week. No other symptoms. He states she is concerned that there is MRSA or staph in her blood because she lives in a dirty trailer. She does tell me that she used a "fake drug" prior to arrival. She is clearly intoxicated, with writhing movements and hyper, pressured speech Allergies and Home Medications Allergies Coded Allergies: Eun Known Allergies (Unverified Allergy, Unknown, 10/09/05) Patient Home Medication List Home Medication List Reviewed: Yes Amoxicillin (Amoxicillin) 500 Mg Capsule, 500 MG PO TID Prescribed by: WENCESLAO VELASCO on 01/25/20 184 Cefdinir (Cefdinir) 300 Mg Capsule, 300 MG PO BID Prescribed by: YENI CURRY on 05/03/21 174 Cephalexin (Keflex) 500 Mg Capsule, 500 MG PO TID Prescribed by: SANGEETA KENT on 07/26/19 1641 Chlorhexidine Gluconate (Peridex) 473 Ml Mouthwash, 473 ML MM TID Prescribed by: SILVANO VARGAS on 10/08/20 1306 Clindamycin HCl (Clindamycin HCl) 300 Mg Capsule, 300 MG PO TID Prescribed by: SILVANO VARGAS on 10/08/20 1306 Cyclobenzaprine HCl (Cyclobenzaprine HCl) 10 Mg Tablet, 10 MG PO Q8H PRN for SPASMS Prescribed by: ARMAND FELIPE on 09/24/191951 Cyclobenzaprine HCl (Cyclobenzaprine HCl) 10 Mg Tablet, 10 MG PO Q8H PRN for SPASMS Prescribed by: LORE PERKINS on 09/26/20 175 Cyclobenzaprine HCl (Cyclobenzaprine HCl) 10 Mg Tablet, 10 MG PO Q6H PRN for PAIN-MODERATE (5-7) Prescribed by: Sandra luong on 03/02/22 1548 Ibuprofen (Ibuprofen) 800 Mg Tablet, 800 MG PO Q8H PRN for PAIN Prescribed by: LORE PERKINS on 09/26/20 1751 Ibuprofen (Ibuprofen) 800 Mg Tablet, 800 MG PO Q8H PRN for PAIN Prescribed by: Sandra luong on 03/02/22 1548 Metronidazole (Metronidazole) 500 Mg Tablet, 500 MG PO BID Prescribed by: CHARLEEN BUNN MD on 03/09/22 1536 Prednisone (Prednisone) 20 Mg Tab, 40 MG PO DAILY Prescribed by: ARMAND FELIPE on 09/24/191951 Tramadol HCl (Tramadol HCl) 50 Mg Tablet, 50 MG PO Q4H PRN for PAIN-MODERATE (5- 7) Prescribed by: SILVANO VARGAS on 10/08/20 1306 Review of Systems Review of Systems Constitutional: no symptoms reported EENTM: nose congestion Respiratory: no symptoms reported Cardiovascular: no symptoms reported Gastrointestinal: no symptoms reported Genitourinary: no symptoms reported Musculoskeletal: no symptoms reported Skin: other (wounds on feet) Psychiatric/Neurological: No Symptoms Reported Hematologic/Lymphatic: No Symptoms Reported Immunological/Allergic: no symptoms reported Past Yghdfes-Imfpqi-Umkvje Hx Immunizations Up To Date First/Initial COVID19 Vaccinat: 10/2020 Second COVID19 Vaccination Tyson: 10/2020 Third COVID19 Vaccination Date: 10/2020 Seasonal Allergies Seasonal Allergies: No Past Medical History Surgery/Hospitalization HX: Depression; Anxiety Surgeries: Yes ( x2, begnin tumor removed on ovary) Section, Ear Surgery Respiratory: Yes (tobaccoism) Cardiac: No Neurological: No Reproductive Disorders: Yes Genitourinary: No Gastrointestinal: No Musculoskeletal: No Endocrine: No Cancer: No Psychosocial: No Integumentary: No Blood Disorders: No Family Medical History No Pertinent Family Hx Physical Exam Vital Signs Capillary Refill : Height, Weight, BMI Height: 5'2" Weight: 180lbs. oz. 81.859932du; 38.00 BMI Method:Stated General Appearance: No Apparent Distress, WD/WN HEENT: PERRL/EOMI, Normal ENT Inspection, Pharynx Normal Neck: Full Range of Motion, Normal Inspection, Non Tender, Supple Respiratory: Chest Non Tender, Lungs Clear, Normal Breath Sounds, No Accessory Muscle Use, No Respiratory Distress Cardiovascular: No Edema, No Gallop, No JVD, No Murmur, Normal Peripheral Pulses, Tachycardia Gastrointestinal: Normal Bowel Sounds, No Organomegaly, No Pulsatile Mass, Non Tender, Soft Extremity: Normal Capillary Refill, Normal Inspection, Normal Range of Motion, Non Tender, No Calf Tenderness Skin: Other (Athlete's foot on bilateral great toes) Progress/Results/Core Measures Suspected Sepsis SIRS Temperature: Pulse: Respiratory Rate: Blood Pressure / Mean: Results/Orders Vital Signs/I&O Capillary Refill : Departure Impression Primary Impression: Athletes foot Qualified Codes: B35.3 - Tinea pedis Additional Impression: Runny nose Disposition: 01 HOME, SELF-CARE Condition: Stable Departure-Patient Inst. Referrals: CHANNING FARRIS APRN (PCP) Primary Care Physician [facility] (Family) Primary Care Physician Patient Instructions: Fungal Skin Rash Add. Discharge Instructions: Use Lotrimin or Lamisil cream [id number] for your feet. The runny nose is likely from a common cold and will run its course on its own. You may want to try an allergy medicine like Claritin or Zyrtec to see if this helps. Refrain from using methamphetamine. YENNIFER JIN DO Mar 15, 2022 13:44
[2022-03-15 13:48] VITALS: BP 124/62
== END 2022-03-15 13:48 | disposition home or self-care (01) ==
LOC: EDUNIT# 13:32 → ER FS 13:34
DX: B35.3 Tinea pedis (principal); R09.89 Other specified symptoms and signs involving the circulatory and respiratory systems; F17.210 Nicotine dependence, cigarettes, uncomplicated; Z28.310 Unvaccinated for COVID-19
CPT/HCPCS: 99282